=== PATIENT | female | born 1955 | race Native Hawaiian/Other Pacific Islander ===

== ENCOUNTER 2017-03-15 10:29 | Outpatient (CLI) | payer OTHER | END 2017-03-15 19:11 | disposition home or self-care (01) | LOC: MAMMO 10:29 | DX: Z12.39 Encounter for other screening for malignant neoplasm of breast (principal) | CPT/HCPCS: G0202-TC ==

== ENCOUNTER 2018-03-22 12:48 | Outpatient (CLI) | payer OTHER | END 2018-03-22 21:54 | disposition home or self-care (01) | LOC: MAMMO 12:48 | DX: Z12.31 Encounter for screening mammogram for malignant neoplasm of breast (principal) ==